=== PATIENT | female | born 1965 | race African-American/Black ===

== ENCOUNTER 2017-10-14 18:02 | Emergency (ER) | payer OTHER, SELFPAY ==
[2017-10-14 18:17] VITALS: BP 150/81; PULSE 87; RESP 14; TEMP 36.7; O2SAT 100; BMI 30.5
--- NOTE | 2017-10-14 18:40 | ED.EXTPRO ---
HPI - Extremity Problem <Alisha Elizabeth PA-C - Last Filed: 10/14/17 22:03> General Chief complaint: Extremity Problem,Nontraumatic Stated complaint: LEFT BREAST,ARM AND SHOULDER PAIN AND TENDERNESS Time Seen by Provider: 10/14/17 18:40 Source: patient Mode of arrival: ambulatory Limitations: no limitations History of Present Illness HPI Narrative: This 52-year-old menopausal female comes in due to a 6 week history of worsening pain in the left lower breast. She describes this as gradually worsening, pain present constantly but then gets throbbing pain and pressure when the breast is hanging down, maybe a little bit less uncomfortable when she holds the breast up. She has not noted any skin changes, rashes, or lumps in the breasts or armpits. She states she has had increased fatigue and some intermittent fevers up to 100 with chills and sweats along with this though none in the last couple of days. Related Data Allergies Allergy/AdvReac Type Severity Reaction Status Date / Time No Known Drug Allergies Allergy Verified 10/14/17 19:06 Review of Systems <Alisha Elizabeth PA-C - Last Filed: 10/14/17 22:03> Review of Systems All systems reviewed & are unremarkable except as noted in HPI and below Exam <Alisha Elizabeth PA-C - Last Filed: 10/14/17 22:03> Narrative Exam Narrative: GENERAL APPEARANCE: Patient sitting comfortably, in no distress. NECK/THYROID: Neck supple, no masses LUNGS: Clear to auscultation bilaterally. CHEST: No TTP BREASTS: Symmetric, no visible skin abnormality, no palpable masses. Moderately tender along the inferior breast tisse ridge LYMPH: No supraclavicular or axillary nodes HEART: Regular rate and rhythm without murmur, normal S1, S2, no S3 or S4. ABDOMEN: Soft, NT, ND, + BS x 4 quadrants EXTREMITIES: No cyanosis or edema. No calf tenderness NEUROLOGIC: Alert and oriented, normal speech, gait and coordination. DERMATOLOGIC: No exanthem Initial Vital Signs Initial Vital Signs: Vital Signs Temperature 98.1 F 10/14/17 18:17 Pulse Rate 87 10/14/17 18:17 Respiratory Rate 14 10/14/17 18:17 Blood Pressure 150/81 H 10/14/17 18:17 Pulse Oximetry 100 10/14/17 18:17 <Vincent Hernandez DO - Last Filed: 10/15/17 03:34> Initial Vital Signs Initial Vital Signs: Vital Signs Temperature 98.1 F 10/14/17 18:17 Pulse Rate 87 10/14/17 18:17 Respiratory Rate 14 10/14/17 18:17 Blood Pressure 150/81 H 10/14/17 18:17 Pulse Oximetry 100 10/14/17 18:17 Course <Alisha Elizabeth PA-C - Last Filed: 10/14/17 22:03> Additional Information: Patient had good improvement with ibuprofen and lidocaine patch in terms of her breast pain. She had resolution of her acid reflux with ranitidine as she usually does. She had been off of that for some time. We did do a troponin due to EKG abnormalities, though these may be her baseline. This was reviewed with her, felt to be low risk for cardiac related pain, but discussed the importance of return to ED if any new or acutely worsening symptoms and she is agreeable. Findings and EKG reviewed with Dr. Hernandez who agreed with plan Orders Ordered: ED Orders 10/14/17 18:57 XR chest 2V Stat EKG-12 Lead Stat 10/14/17 19:10 Basic Metabolic Panel Stat Complete Blood Count AUTO DIFF Stat Troponin I Stat Discontinued Medications Ibuprofen (Advil) 400 mg PO NOW ONE Stop: 10/14/17 18:52 Last Admin: 10/14/17 19:08 Dose: 400 mg Lidocaine (Lidoderm) 2 each TOP NOW ONE Stop: 10/14/17 19:41 Last Admin: 10/14/17 20:00 Dose: 2 each Ranitidine HCl (Zantac) 300 mg PO NOW ONE Stop: 10/14/17 18:52 Last Admin: 10/14/17 19:09 Dose: 300 mg Vital Signs - 8 hr 10/14/17 20:01 10/14/17 20:50 Pulse Rate 80 78 Respiratory Rate 16 14 Blood Pressure [Left Arm] 138/58 H 132/82 H Pulse Oximetry 100 99 <Vincent Hernandez DO - Last Filed: 10/15/17 03:34> Orders Ordered: ED Orders 10/14/17 18:57 XR chest 2V Stat EKG-12 Lead Stat 10/14/17 19:10 Basic Metabolic Panel Stat Complete Blood Count AUTO DIFF Stat Troponin I Stat Discontinued Medications Ibuprofen (Advil) 400 mg PO NOW ONE Stop: 10/14/17 18:52 Last Admin: 10/14/17 19:08 Dose: 400 mg Lidocaine (Lidoderm) 2 each TOP NOW ONE Stop: 10/14/17 19:41 Last Admin: 10/14/17 20:00 Dose: 2 each Ranitidine HCl (Zantac) 300 mg PO NOW ONE Stop: 10/14/17 18:52 Last Admin: 10/14/17 19:09 Dose: 300 mg Vital Signs - 8 hr 10/14/17 20:01 10/14/17 20:50 Pulse Rate 80 78 Respiratory Rate 16 14 Blood Pressure [Left Arm] 138/58 H 132/82 H Pulse Oximetry 100 99 MDM - Extremity (Nontraumatic) <Alisha Elizabeth PA-C - Last Filed: 10/14/17 22:03> Lab Data Attestation: I reviewed the patient's lab results. Result diagrams: 10/14/17 19:10 10/14/17 19:10 Lab Results 10/14/17 10/14/17 10/14/17 Range/Units 19:10 19:10 19:10 WBC 6.5 (4.5-11.0) X10^3/uL RBC 4.18 (4.0-5.2) X10^6/uL Hgb 12.0 (12.0-16.0) g/dL Hct 37.0 (36-46) % MCV 88.4 (80-100) fL MCH 28.7 (26-34) PG MCHC 32.5 (30-36) % RDW 13.3 (11.6-14.8) % Plt Count 247 (150-400) X10^3/uL Neut % (Auto) 50.7 (50-75) % Lymph % (Auto) 32.3 (25-40) % [place] % (Auto) 8.8 (3-14) % Eos % (Auto) 6.8 H (2-4) % Baso % (Auto) 1.4 (0-2) % Neut # (Auto) 3300 (5793-7083) /uL Sodium 141 (137-145) mmol/L Potassium 3.6 (3.4-5.1) mmol/L Chloride 103 (98-107) mmol/L Carbon Dioxide 32 (22-32) mmol/L BUN 14 (7-17) mg/dL Creatinine 1.00 (0.52-1.04) mg/dL Estimated GFR 58.0 L (>60) mL/min BUN/Creatinine Ratio 14.0 (6-22) Glucose 81 (70-100) mg/dL Calcium 8.9 (8.4-10.2) mg/dL Troponin I < 0.012 (0.01-0.034) ng/mL Imaging Data Chest x-ray: Radiologist's impression: View Report History [address] [address] XRay Report Signed Patient: Ev Wallace MR#: [id number] : 1965 Acct:[id number] Age/Sex: 52 / F Date of Service: 10/14/17 Loc: ED Accession Number: [id number] Procedure: XR chest 2V Ordering Provider: Alisha Elizabeth P.A-C PROCEDURE: XR CHEST 2V INDICATIONS: Left chest/breast pain TECHNIQUE: 2 views of the chest were acquired. COMPARISON: None. FINDINGS: Surgical changes and devices: None. Lungs and pleura: No pleural effusions or pneumothorax. Lungs are clear. Mediastinum: Mediastinal contours are normal. Heart size is normal. Bones and chest wall: No suspicious bony abnormalities. Soft tissues appear unremarkable. IMPRESSION: No acute cardiopulmonary disease. Dictated by: Rossy Mauricio M.D. on 10/14/2017 at 19:21 Approved by: Rossy Mauricio M.D. on 10/14/2017 at 19:24 ECG Data Attestation EKG: I personally reviewed and interpreted this ECG as follows: (Normal sinus rhythm with rate 84, P are 0.10, multiple T-wave inversions and right bundle branch pattern ) Prior ECG tracings: not available for review <Vincent Hernandez DO - Last Filed: 10/15/17 03:34> Lab Data Lab Results 10/14/17 10/14/17 10/14/17 Range/Units 19:10 19:10 19:10 WBC 6.5 (4.5-11.0) X10^3/uL RBC 4.18 (4.0-5.2) X10^6/uL Hgb 12.0 (12.0-16.0) g/dL Hct 37.0 (36-46) % MCV 88.4 (80-100) fL MCH 28.7 (26-34) PG MCHC 32.5 (30-36) % RDW 13.3 (11.6-14.8) % Plt Count 247 (150-400) X10^3/uL Neut % (Auto) 50.7 (50-75) % Lymph % (Auto) 32.3 (25-40) % [place] % (Auto) 8.8 (3-14) % Eos % (Auto) 6.8 H (2-4) % Baso % (Auto) 1.4 (0-2) % Neut # (Auto) 3300 (0432-9396) /uL Sodium 141 (137-145) mmol/L Potassium 3.6 (3.4-5.1) mmol/L Chloride 103 (98-107) mmol/L Carbon Dioxide 32 (22-32) mmol/L BUN 14 (7-17) mg/dL Creatinine 1.00 (0.52-1.04) mg/dL Estimated GFR 58.0 L (>60) mL/min BUN/Creatinine Ratio 14.0 (6-22) Glucose 81 (70-100) mg/dL Calcium 8.9 (8.4-10.2) mg/dL Troponin I < 0.012 (0.01-0.034) ng/mL Discharge Plan Departure Patient Disposition: Home, Self-Care Clinical Impression: Breast pain, GERD (gastroesophageal reflux disease) Discharge Date/Time: 10/14/17 21:17 Interventions: ED Discharge Assessment Last Done: 10/14/17 21:17 Instructions: DI for Gastroesophageal Reflux Disease (GERD), DI for Breast Pain (Mastalgia) Activity Restrictions/Additional Instructions: Please return at as we talked about if you have any acutely worsening symptoms. Please take ibuprofen 400-800 mg every 8 hr with food for pain and inflammation. Add lidocaine patches, 4%, cebw-[id number]-[id number] along the underside of the breast since that seems to be helping. These are available from multiple and you factors. Please start taking your ranitidine again. This is available shuw-jxx-hrnxnhx in a 150 mg dose, you can take 2 of them at a time. You had some abnormalities on your heart tracing today which may be old. Your lab work for acute heart problems was normal. There were no acute problems found on your other lab work, however you should be sure to follow up with your primary care provider since you have had fevers at home along with this breast pain. Referrals: [facility] [Provider Group] <Vincent Hernandez DO - Last Filed: 10/15/17 03:34> Cosign ED Attending Aminah Attestation: I was immediately available in the department for consultation. Documentation has been reviewed. I agree with assessment and plan.
--- NOTE | 2017-10-14 18:57 | DI.RAD.S_ITS ---
PROCEDURE: XR CHEST 2V INDICATIONS: Left chest/breast pain TECHNIQUE: 2 views of the chest were acquired. COMPARISON: None. FINDINGS: Surgical changes and devices: None. Lungs and pleura: No pleural effusions or pneumothorax. Lungs are clear. Mediastinum: Mediastinal contours are normal. Heart size is normal. Bones and chest wall: No suspicious bony abnormalities. Soft tissues appear unremarkable. IMPRESSION: No acute cardiopulmonary disease. Dictated by: Rossy Mauricio M.D. on 10/14/2017 at 19:21 Approved by: Rossy Mauricio M.D. on 10/14/2017 at 19:24
[2017-10-14 19:00] VITALS: BP 158/81; PULSE 80; RESP 12; O2SAT 100
[2017-10-14] MEDS: IBUPROFEN 400 MG TABLET PO (19:08)
--- NOTE | 2017-10-14 19:16 | ED_ITS ---
HPI - Extremity Problem <Alisha Elizabeth PA-C - Last Filed: 10/14/17 22:03> General Chief complaint: Extremity Problem,Nontraumatic Stated complaint: LEFT BREAST,ARM AND SHOULDER PAIN AND TENDERNESS Time Seen by Provider: 10/14/17 18:40 Source: patient Mode of arrival: ambulatory Limitations: no limitations History of Present Illness HPI Narrative: This 52-year-old menopausal female comes in due to a 6 week history of worsening pain in the left lower breast. She describes this as gradually worsening, pain present constantly but then gets throbbing pain and pressure when the breast is hanging down, maybe a little bit less uncomfortable when she holds the breast up. She has not noted any skin changes, rashes, or lumps in the breasts or armpits. She states she has had increased fatigue and some intermittent fevers up to 100 with chills and sweats along with this though none in the last couple of days. Related Data Allergies Allergy/AdvReac Type Severity Reaction Status Date / Time No Known Drug Allergies Allergy Verified 10/14/17 19:06 Review of Systems <Alisha Elizabeth PA-C - Last Filed: 10/14/17 22:03> Review of Systems All systems reviewed & are unremarkable except as noted in HPI and below Exam <Alisha Elizabeth PA-C - Last Filed: 10/14/17 22:03> Narrative Exam Narrative: GENERAL APPEARANCE: Patient sitting comfortably, in no distress. NECK/THYROID: Neck supple, no masses LUNGS: Clear to auscultation bilaterally. CHEST: No TTP BREASTS: Symmetric, no visible skin abnormality, no palpable masses. Moderately tender along the inferior breast tisse ridge LYMPH: No supraclavicular or axillary nodes HEART: Regular rate and rhythm without murmur, normal S1, S2, no S3 or S4. ABDOMEN: Soft, NT, ND, + BS x 4 quadrants EXTREMITIES: No cyanosis or edema. No calf tenderness NEUROLOGIC: Alert and oriented, normal speech, gait and coordination. DERMATOLOGIC: No exanthem Initial Vital Signs Initial Vital Signs: Vital Signs Temperature 98.1 F 10/14/17 18:17 Pulse Rate 87 10/14/17 18:17 Respiratory Rate 14 10/14/17 18:17 Blood Pressure 150/81 H 10/14/17 18:17 Pulse Oximetry 100 10/14/17 18:17 <Vincent Hernandez DO - Last Filed: 10/15/17 03:34> Initial Vital Signs Initial Vital Signs: Vital Signs Temperature 98.1 F 10/14/17 18:17 Pulse Rate 87 10/14/17 18:17 Respiratory Rate 14 10/14/17 18:17 Blood Pressure 150/81 H 10/14/17 18:17 Pulse Oximetry 100 10/14/17 18:17 Course <Alisha Elizabeth PA-C - Last Filed: 10/14/17 22:03> Additional Information: Patient had good improvement with ibuprofen and lidocaine patch in terms of her breast pain. She had resolution of her acid reflux with ranitidine as she usually does. She had been off of that for some time. We did do a troponin due to EKG abnormalities, though these may be her baseline. This was reviewed with her, felt to be low risk for cardiac related pain, but discussed the importance of return to ED if any new or acutely worsening symptoms and she is agreeable. Findings and EKG reviewed with Dr. Hernandez who agreed with plan Orders Ordered: ED Orders 10/14/17 18:57 XR chest 2V Stat EKG-12 Lead Stat 10/14/17 19:10 Basic Metabolic Panel Stat Complete Blood Count AUTO DIFF Stat Troponin I Stat Discontinued Medications Ibuprofen (Advil) 400 mg PO NOW ONE Stop: 10/14/17 18:52 Last Admin: 10/14/17 19:08 Dose: 400 mg Lidocaine (Lidoderm) 2 each TOP NOW ONE Stop: 10/14/17 19:41 Last Admin: 10/14/17 20:00 Dose: 2 each Ranitidine HCl (Zantac) 300 mg PO NOW ONE Stop: 10/14/17 18:52 Last Admin: 10/14/17 19:09 Dose: 300 mg Vital Signs - 8 hr 10/14/17 20:01 10/14/17 20:50 Pulse Rate 80 78 Respiratory Rate 16 14 Blood Pressure [Left Arm] 138/58 H 132/82 H Pulse Oximetry 100 99 <Vincent Hernandez DO - Last Filed: 10/15/17 03:34> Orders Ordered: ED Orders 10/14/17 18:57 XR chest 2V Stat EKG-12 Lead Stat 10/14/17 19:10 Basic Metabolic Panel Stat Complete Blood Count AUTO DIFF Stat Troponin I Stat Discontinued Medications Ibuprofen (Advil) 400 mg PO NOW ONE Stop: 10/14/17 18:52 Last Admin: 10/14/17 19:08 Dose: 400 mg Lidocaine (Lidoderm) 2 each TOP NOW ONE Stop: 10/14/17 19:41 Last Admin: 10/14/17 20:00 Dose: 2 each Ranitidine HCl (Zantac) 300 mg PO NOW ONE Stop: 10/14/17 18:52 Last Admin: 10/14/17 19:09 Dose: 300 mg Vital Signs - 8 hr 10/14/17 20:01 10/14/17 20:50 Pulse Rate 80 78 Respiratory Rate 16 14 Blood Pressure [Left Arm] 138/58 H 132/82 H Pulse Oximetry 100 99 MDM - Extremity (Nontraumatic) <Alisha Elizabeth PA-C - Last Filed: 10/14/17 22:03> Lab Data Attestation: I reviewed the patient's lab results. Result diagrams: 10/14/17 19:10 10/14/17 19:10 Lab Results 10/14/17 10/14/17 10/14/17 Range/Units 19:10 19:10 19:10 WBC 6.5 (4.5-11.0) X10^3/uL RBC 4.18 (4.0-5.2) X10^6/uL Hgb 12.0 (12.0-16.0) g/dL Hct 37.0 (36-46) % MCV 88.4 (80-100) fL MCH 28.7 (26-34) PG MCHC 32.5 (30-36) % RDW 13.3 (11.6-14.8) % Plt Count 247 (150-400) X10^3/uL Neut % (Auto) 50.7 (50-75) % Lymph % (Auto) 32.3 (25-40) % [place] % (Auto) 8.8 (3-14) % Eos % (Auto) 6.8 H (2-4) % Baso % (Auto) 1.4 (0-2) % Neut # (Auto) 3300 (9642-0715) /uL Sodium 141 (137-145) mmol/L Potassium 3.6 (3.4-5.1) mmol/L Chloride 103 (98-107) mmol/L Carbon Dioxide 32 (22-32) mmol/L BUN 14 (7-17) mg/dL Creatinine 1.00 (0.52-1.04) mg/dL Estimated GFR 58.0 L (>60) mL/min BUN/Creatinine Ratio 14.0 (6-22) Glucose 81 (70-100) mg/dL Calcium 8.9 (8.4-10.2) mg/dL Troponin I < 0.012 (0.01-0.034) ng/mL Imaging Data Chest x-ray: Radiologist's impression: View Report History [address] [address] XRay Report Signed Patient: Ev Wallace MR#: [id number] : 1965 Acct:[id number] Age/Sex: 52 / F Date of Service: 10/14/17 Loc: ED Accession Number: [id number] Procedure: XR chest 2V Ordering Provider: Alisha Elizabeth P.A-C PROCEDURE: XR CHEST 2V INDICATIONS: Left chest/breast pain TECHNIQUE: 2 views of the chest were acquired. COMPARISON: None. FINDINGS: Surgical changes and devices: None. Lungs and pleura: No pleural effusions or pneumothorax. Lungs are clear. Mediastinum: Mediastinal contours are normal. Heart size is normal. Bones and chest wall: No suspicious bony abnormalities. Soft tissues appear unremarkable. IMPRESSION: No acute cardiopulmonary disease. Dictated by: Rossy Mauricio M.D. on 10/14/2017 at 19:21 Approved by: Rossy Mauricio M.D. on 10/14/2017 at 19:24 ECG Data Attestation EKG: I personally reviewed and interpreted this ECG as follows: ( Normal sinus rhythm with rate 84, P are 0.10, multiple T-wave inversions and right bundle branch pattern ) Prior ECG tracings: not available for review <Vincent Hernandez DO - Last Filed: 10/15/17 03:34> Lab Data Lab Results 10/14/17 10/14/17 10/14/17 Range/Units 19:10 19:10 19:10 WBC 6.5 (4.5-11.0) X10^3/uL RBC 4.18 (4.0-5.2) X10^6/uL Hgb 12.0 (12.0-16.0) g/dL Hct 37.0 (36-46) % MCV 88.4 (80-100) fL MCH 28.7 (26-34) PG MCHC 32.5 (30-36) % RDW 13.3 (11.6-14.8) % Plt Count 247 (150-400) X10^3/uL Neut % (Auto) 50.7 (50-75) % Lymph % (Auto) 32.3 (25-40) % [place] % (Auto) 8.8 (3-14) % Eos % (Auto) 6.8 H (2-4) % Baso % (Auto) 1.4 (0-2) % Neut # (Auto) 3300 (6637-8337) /uL Sodium 141 (137-145) mmol/L Potassium 3.6 (3.4-5.1) mmol/L Chloride 103 (98-107) mmol/L Carbon Dioxide 32 (22-32) mmol/L BUN 14 (7-17) mg/dL Creatinine 1.00 (0.52-1.04) mg/dL Estimated GFR 58.0 L (>60) mL/min BUN/Creatinine Ratio 14.0 (6-22) Glucose 81 (70-100) mg/dL Calcium 8.9 (8.4-10.2) mg/dL Troponin I < 0.012 (0.01-0.034) ng/mL Discharge Plan Departure Patient Disposition: Home, Self-Care Clinical Impression: Breast pain, GERD (gastroesophageal reflux disease) Discharge Date/Time: 10/14/17 21:17 Interventions: ED Discharge Assessment Last Done: 10/14/17 21:17 Instructions: DI for Gastroesophageal Reflux Disease (GERD), DI for Breast Pain (Mastalgia) Activity Restrictions/Additional Instructions: Please return at as we talked about if you have any acutely worsening symptoms. Please take ibuprofen 400-800 mg every 8 hr with food for pain and inflammation. Add lidocaine patches, 4%, rcsu-odh-pzxiqye along the underside of the breast since that seems to be helping. These are available from multiple and you factors. Please start taking your ranitidine again. This is available oetr-pud-uoddwlz in a 150 mg dose, you can take 2 of them at a time. You had some abnormalities on your heart tracing today which may be old. Your lab work for acute heart problems was normal. There were no acute problems found on your other lab work, however you should be sure to follow up with your primary care provider since you have had fevers at home along with this breast pain. [facility]: [facility] [[facility]] <Vincent Hernandez DO - Last Filed: 10/15/17 03:34> Cosign ED Attending Aminah Attestation: I was immediately available in the department for consultation. Documentation has been reviewed. I agree with assessment and plan.
[2017-10-14 19:18] LABS: Add Manual Diff / Slide Review NO; Basophils Percent Auto 1.4 % (0-2); Eosinophils Percent Auto 6.8 % (2-4); Lymphocytes Percent Auto 32.3 % (25-40); Mean Corpuscular HGB Conc 32.5 % (30-36); Mean Corpuscular Hemoglobin 28.7 PG (26-34); Mean Corpuscular Volume 88.4 fL (80-100); Monocytes Percent Auto 8.8 % (3-14); Neutrophils Absolute Auto 3300 /uL (3000-5900); Neutrophils Percent Auto 50.7 % (50-75); Platelet Count 247 X10^3/uL (150-400); Red Blood Cell Count 4.18 X10^6/uL (4.0-5.2); Red Cell Distribution Width 13.3 % (11.6-14.8); White Blood Cell Count 6.5 X10^3/uL (4.5-11.0)
[2017-10-14 19:32] LABS: Blood Urea Nitrogen 14 mg/dL (7-17); Calcium 8.9 mg/dL (8.4-10.2); Carbon Dioxide 32 mmol/L (22-32); Chloride 103 mmol/L (98-107); Glucose 81 mg/dL (70-100); HEMOLYSIS < 15 (0-50); Potassium 3.6 mmol/L (3.4-5.1); Sodium 141 mmol/L (137-145)
[2017-10-14] MEDS: LIDOCAINE PATCH 1 EACH ADH..PATCH 2 EACH TOP (20:00)
[2017-10-14 20:01] VITALS: BP 138/58; PULSE 80; RESP 16; O2SAT 100
[2017-10-14 20:50] VITALS: BP 132/82; PULSE 78; RESP 14; O2SAT 99
[2017-10-14 20:52] LABS: Troponin I < 0.012 ng/mL (0.01-0.034)
== END 2017-10-14 21:17 | disposition home or self-care (01) ==
PROVIDERS: Emergency Provider Internal Medicine
DX: N64.4 Mastodynia (principal); K21.9 Gastro-esophageal reflux disease without esophagitis
CPT/HCPCS: 36415; 71046; 80048; 84484; 85025; 93005; 99283; 99285

== ENCOUNTER → 2017-10-19 14:34 | Outpatient (CLI) | payer OTHER, SELFPAY ==
--- NOTE | 2017-10-19 | DI.MG.S_ITS ---
PROCEDURE: MM DIAGNOSTIC MAMMO BI COMPARISON: [facility], BREAST LT LIMITED, 10/19/2017, 15:43. [facility], , MM SCREENING MAMMO BI, 05/01/2015, 8:53. INDICATIONS: LEFT BREAST LUMP FINDINGS: IMPRESSION: Dictated by: Juan M Robles M.D. on 10/19/2017 at 19:46 Approved by: Juan M Robles M.D. on 10/19/2017 at 19:58
--- NOTE | 2017-10-19 15:12 | DI.MG.S_ITS ---
Diagnostic Imaging [address] [place] [id number] PHONE: [phone] Patient Name: NERI SPICER date: 1965 Sex: F Attending Physician: Anoop Indications: Date: 10/19/2017 14:40 At the request of: THAI HIGHTOWER Procedure: MM diagnostic mammo BI BILATERAL DIGITAL DIAGNOSTIC MAMMOGRAM 3D/2D: 10/19/2017 CLINICAL: Left breast lumps. Comparison is made to exams dated: 05/01/2015 mammogram, 10/24/2012 mammogram, and 04/28/2011 mammogram - [facility]. There are scattered fibroglandular elements in both breasts. Triangular skin markers are present over the areas of the patient's palpable concerns in the outer left breast at anterior depth and the inner left breast at posterior depth. No underlying abnormality is identified mammographically. There is a retroareolar asymmetry on initial C-view LCC and LMLO that resolves with tomosynthesis views. No significant masses, calcifications, or other findings are seen in either breast. IMPRESSION: INCOMPLETE: NEEDS ADDITIONAL IMAGING EVALUATION No mammographic abnormality at the sites of the patient's reported palpable concerns in the outer left breast at anterior depth and the inner left breast at posterior depth. Recommend targeted ultrasound for further evaluation of both sites. Otherwise, no mammographic evidence of malignancy in either breast. This exam was interpreted at Station ID: [id number]. NOTE: For mammograms, a report in lay terms will be sent to the patient. Approximately 15% of breast malignancies will not be visualized mammographically. In the management of a palpable breast mass, a negative mammogram must not discourage biopsy of a clinically suspicious lesion. Electronically Signed By: Juan M Robles M.D. ecl/:10/19/2017 19:54:19 Continued Report - Page 2 of 2 Patient Name: NERI SPICER date: 1965 Sex: F Attending Physician: Anoop Indications: Date: 10/19/2017 14:40 At the request of: THAI HIGHTOWER Procedure: MM diagnostic mammo BI letter sent: Additional Imaging Needed ACR BI-RADS Category 0: Incomplete [id number]
--- NOTE | 2017-10-19 15:43 | DI.US.S_ITS ---
Patient Name: NERI SPICER date: 1965 Sex: F Attending Physician: Anoop Indications: Date: 10/19/2017 16:09 At the request of: THAI HIGHTOWER Procedure: US breast LT limited ULTRASOUND OF LEFT BREAST: 10/19/2017 CLINICAL: Palpable left breast lump. Comparison is made to exams dated: 10/19/2017 mammogram - [facility], 2015 mammogram, and 10/24/2012 mammogram - [facility]. Real-time and Doppler ultrasound of the left breast were performed. Qureshi scale images of the real-time examination were reviewed. Targeted ultrasound demonstrates no sonongraphic abnormality at the sites of the patient's reported palpable concerns in the outer left breast at anterior depth and the inner left breast at posterior depth. IMPRESSION: NEGATIVE 1) No sonongraphic abnormality at the sites of the patient's reported palpable concerns in the outer left breast at anterior depth and the inner left breast at posterior depth. Recommend clinical follow-up for management of the patient's reported symptoms. 2) There is no sonographic evidence of malignancy in the left breast. Return to annual mammogram screening schedule is recommended. This exam was interpreted at Station ID: [id number]. Electronically Signed By: Juan M Robles M.D. ecl/:10/19/2017 19:56:56 letter sent: Clinical Evaluation Ultrasound BI-RADS: 1 Negative
--- NOTE | 2020-01-08 09:56 | DI.MG.S_ITS ---
Diagnostic Imaging [address] [place] [id number] PHONE: [phone] Patient Name: NERI SPICER date: 1965 Sex: F Attending Physician: Oscar Indications: Date: 01/08/2020 09:41 At the request of: YOVANY MUNIZ Procedure: MM diagnostic mammo BI BILATERAL DIGITAL DIAGNOSTIC MAMMOGRAM 3D/2D: 01/08/2020 CLINICAL: Left breast pain. Comparison is made to exams dated: 10/19/2017 mammogram - [facility], 05/01/2015 mammogram, 10/24/2012 mammogram, 04/28/2011 mammogram - [facility], and 10/19/2017 ultrasound - [facility]. There are scattered fibroglandular elements in both breasts. No significant masses, calcifications, or other findings are seen in either breast. No finding in the region of pain in the upper outer quadrant of the left breast or the left axilla. IMPRESSION: INCOMPLETE: NEEDS ADDITIONAL IMAGING EVALUATION No mammographic evidence of malignancy. A targeted ultrasound of the area of pain in the left breast is recommended and will immediately follow. This exam was interpreted at Station ID: [id number]. NOTE: For mammograms, a report in lay terms will be sent to the patient. Approximately 15% of breast malignancies will not be visualized mammographically. In the management of a palpable breast mass, a negative mammogram must not discourage biopsy of a clinically suspicious lesion. Electronically Signed By: Cheng Bocanegra M.D. slc/:01/08/2020 10:19:54 ACR BI-RADS Category 0: Incomplete 3340F
== END ==
PROVIDERS: Visit Provider Family Medicine
DX: R92.8 Other abnormal and inconclusive findings on diagnostic imaging of breast (principal); N63.20 Unspecified lump in the left breast, unspecified quadrant
CPT/HCPCS: 76642; 77066; G0279

== ENCOUNTER 2019-06-07 13:21 | Emergency (ER) | payer OTHER, SELFPAY | END 2019-06-07 13:28 | disposition left against medical advice (07) | PROVIDERS: Emergency Provider Emergency Medicine ==

== ENCOUNTER → 2020-01-08 09:06 | Outpatient (CLI) | payer OTHER, SELFPAY ==
--- NOTE | 2020-01-08 | DI.US.S_ITS ---
LIMITED ULTRASOUND OF LEFT BREAST AND AXILLA: 01/08/2020 CLINICAL: Focal left breast pain. Comparison is made to exams dated: 01/08/2020 mammogram, 10/19/2017 ultrasound, 10/19/2017 mammogram - [facility], 05/01/2015 mammogram, 10/24/2012 mammogram, and 04/28/2011 mammogram - [facility]. Real-time ultrasound of the left breast 2 o'clock, and axilla regions was performed. Qureshi scale images of the real-time examination were reviewed. No significant abnormalities were seen sonographically in the left breast or the left axilla. IMPRESSION: NEGATIVE There is no sonographic evidence of malignancy in the region of pain in the upper outer left breast or left axilla. A 1 year screening mammogram is recommended. Exam findings were conveyed to the patient. Patient was advised to monitor for significant change. This exam was interpreted at Station ID: [id number]. Electronically Signed By: Cheng Bocanegra M.D. slc/:01/08/2020 11:02:36 letter sent: Normal Exam Ultrasound BI-RADS: 1 Negative
--- NOTE | 2020-01-08 | DI.MG.S_ITS ---
BILATERAL DIGITAL DIAGNOSTIC MAMMOGRAM 3D/2D: 01/08/2020 CLINICAL: Left breast pain. Comparison is made to exams dated: 10/19/2017 mammogram - [facility], 05/01/2015 mammogram, 10/24/2012 mammogram, 04/28/2011 mammogram - [facility], and 10/19/2017 ultrasound - [facility]. There are scattered fibroglandular elements in both breasts. No significant masses, calcifications, or other findings are seen in either breast. No finding in the region of pain in the upper outer quadrant of the left breast or the left axilla. IMPRESSION: INCOMPLETE: NEEDS ADDITIONAL IMAGING EVALUATION No mammographic evidence of malignancy. A targeted ultrasound of the area of pain in the left breast is recommended and will immediately follow. This exam was interpreted at Station ID: [id number]. NOTE: For mammograms, a report in lay terms will be sent to the patient. Approximately 15% of breast malignancies will not be visualized mammographically. In the management of a palpable breast mass, a negative mammogram must not discourage biopsy of a clinically suspicious lesion. Electronically Signed By: Cheng Bocanegra M.D. slc/:01/08/2020 10:19:54 ACR BI-RADS Category 0: Incomplete 3340F
== END ==
PROVIDERS: Referring Provider Internal Medicine; Visit Provider Internal Medicine
DX: R92.8 Other abnormal and inconclusive findings on diagnostic imaging of breast (principal); N64.4 Mastodynia
CPT/HCPCS: 76642; 77066; G0279

== ENCOUNTER 2023-07-28 10:33 | Day surgery (SDC) | payer OTHER, MEDICAID, SELFPAY ==
--- NOTE | 2023-07-28 | PATH_ITS ---
[facility] Accession Number: [id number] No. of containers..01 Tissue . 01 Material submitted: . colon - ASCENDING COLON POLYP . 01 Diagnosis: ASCENDING COLON POLYP: Tubular adenoma. STO 08/02/2023 1540 Local . 01 Electronically signed: . Kevin Russo MD, Pathologist NPI- [id number] . 01 Gross description: . ASCENDING COLON POLYP: Received in formalin is 1 fragment(s) of phillips, soft tissue measuring 0.6 x 0.5 x 0.4 cm submitted entirely in 1 cassette(s) /TAMMY 08/02/2023 1540 Local . 01 Pathologist provided ICD-10: D12.2 . 01 CPT . 244224 Specimen Comment: A courtesy copy of this report has been sent to [phone] Performed at: 01 [facility] [address] [place] [address] [id number] MD Kevin Russo MD Phone: [phone]
[2023-07-28 11:02] VITALS: BP 146/94; PULSE 92; RESP 16; TEMP 36.8; O2SAT 97
--- NOTE | 2023-07-28 11:03 | P.HP_ITS ---
History of Present Illness History of Present Illness Date Patient Seen: 07/28/23 Time Patient Seen: 11:03 Chief complaint: SDC Narrative: Lou is a 58-year-old woman who has a history of colon polyps and diverticulitis. See office note from April for details. [facility] Medical History Abdominal pain, left lower quadrant Hypertension GERD (gastroesophageal reflux disease) Surgical History Hx of laparoscopic gastric banding Social History Smoking Status: Never smoker alcohol intake: never substance use type: does not use Meds Home Medications and Allergies Home Medications Medication Instructions Recorded Confirmed Type losartan 50 mg tablet 50 mg PO DAILY 05/11/23 07/28/23 History Allergies Allergy/AdvReac Type Severity Reaction Status Date / Time No Known Drug Allergies Allergy Verified 07/28/23 10:50 Exam Const General: No acute distress Resp Effort & Inspection: normal respiratory effort Assessment & Plan Assessment and plan (1) Diverticular disease: Status: Acute (2) Personal history of colonic polyps: Status: Acute Plan We reviewed risks and benefits of colonoscopy for colon cancer screening and a history of polyps and she would like to proceed.
[2023-07-28] MEDS: LACTATED RINGERS 1,000 ML 100 ML IV (11:10)
--- NOTE | 2023-07-28 12:11 | PM.OP.COLON ---
Operative Date/Time/Diagnoses Date of procedure: 07/28/23 Time of procedure: 12:11 Pre-op diagnosis: History of polyps, diverticulitis and prolapsing internal hemorrhoids Post-op diagnosis: same Procedure & Clinicians Study performed: Colonoscopy Rubber-band ligation of internal hemorrhoid Same procedure as scheduled: Yes Surgeon: Jose Wolfe Procedure Notes Procedure in detail: Surgeon: Jose Wolfe MD Anesthesia: Master Smith.Byron Procedure: The patient was brought to the endoscopy suite, placed in left lateral decubitus position. The patient was connected to monitoring devices. A time-out was performed. Sedation was administered. Once the patient was adequately sedated, a digital rectal exam was performed and was normal. The scope was then inserted and advanced to the cecum where the appendiceal orifice was identified and photographed. The scope was then slowly withdrawn over greater than 6 minutes. The mucosa was thoroughly inspected. There was a 4 mm polyp in the ascending colon removed with a cold snare. The scope was retroflexed in the rectum. There was an internal hemorrhoid in the anterior position. The scope was straightened and removed. We then proceeded with rubber-band ligation of the internal hemorrhoid in the anterior location. The patient was awakened and brought to recovery. Scope withdrawal time: 13 minutes Sedation time: 16 minutes EBL: 3 mL Findings: 3 mm polyp in the ascending colon and anterior internal hemorrhoids Post-procedure Disposition: PACU
[2023-07-28 12:12] VITALS: BP 139/79; PULSE 84; RESP 16; TEMP 36.2; O2SAT 100
[2023-07-28 12:19] VITALS: BP 153/87; PULSE 85; RESP 16; O2SAT 99
[2023-07-28 12:23] VITALS: BP 158/92; PULSE 91; RESP 15; O2SAT 100
[2023-07-28 13:42] VITALS: BP 174/97; PULSE 88; RESP 16; TEMP 36.7; O2SAT 98
== END 2023-07-28 13:46 | disposition home or self-care (01) ==
PROVIDERS: PCP Physician Assistant; Referring Provider Surgery; Visit Provider Surgery
PROC: 0DJD8ZZ Inspection of Lower Intestinal Tract, Via Natural or Artificial Opening Endoscopic (ICD-10-PCS; CPT 45378; principal; 2023-07-28 11:15)
DX: Z12.11 Encounter for screening for malignant neoplasm of colon (principal); Z86.010 Personal history of colon polyps; K64.8 Other hemorrhoids; D12.2 Benign neoplasm of ascending colon
CPT/HCPCS: 46221; 45385; J2704